=== PATIENT | male | born 1965 ===

== ENCOUNTER 2025-03-05 23:42 | Emergency (ER) | payer OTHER, SELFPAY ==
--- NOTE | ~2025-03-05 | CT_ITS ---
CLINICAL HISTORY: pneumothorax CT chest without contrast Comparison: CR - XR CHEST 1V - 03/06/25 01:54 EDT CR - XR CHEST 1V - 03/06/25 01:36 EDT Findings: The heart is normal size. The visualized thyroid and mediastinum are unremarkable. Interval resolution of leftward mediastinal shift. Tip of the endotracheal tube is 5 cm above the [place]. There is a moderately large right-sided pneumothorax, decreased in size from prior x-ray. There is a right pleural pigtail catheter with pigtail located in the posterior pleural space. Bilateral dependent ground-glass opacities consistent pulmonary edema present. Small left pleural effusion. There is a enteric tube coursing into the stomach, tip not included. Multiple air distended loops of bowel in the upper abdomen. No acute fractures. IMPRESSION: 1. Interval decrease in size of right-sided pneumothorax, now moderately large. 2. Right pigtail pleural catheter placed in the posterior pleural space. 3. Bilateral dependent ground-glass opacities in the lungs consistent with extensive pulmonary edema. Small left pleural effusion. 4. Multiple distended loops of bowel in the upper abdomen. This document has been electronically signed by: Foreign Nieto MD on 03/06/2025 03:06:52
--- NOTE | ~2025-03-05 | XR_ITS ---
CLINICAL HISTORY: et tube 1 view chest x-ray Comparison: None provided Findings: There is a massive right pneumothorax with near-total collapse of the right lung. The mediastinum is shifted leftward. Diffuse patchy opacity in the left lung. The tip of the endotracheal tube is 6.7 cm above the [place]. Normal size heart. No acute fracture. IMPRESSION: Massive right pneumothorax with leftward shift of the mediastinum. Patient team is aware, subsequent images demonstrate a right chest tube. This document has been electronically signed by: Foreign Nieto MD on 03/06/2025 02:14:57
--- NOTE | ~2025-03-05 | XR_ITS ---
CLINICAL HISTORY: chest tube 1 view chest x-ray Comparison: CR - XR CHEST 1V - 03/06/25 01:36 EDT Findings: There has been interval placement of a pigtail catheter in the right pleural space. Large right pneumothorax persists with slight interval re-expansion of the right lung. Decreased leftward shift of the mediastinum. Diffuse patchy opacity throughout the left lung. The tip of the endotracheal tube is 8.6 cm above the [place]. Heart size is normal. No acute fracture. Enteric tube courses into the stomach. Tip appears to be coiled back upon itself and directed at the GE junction. IMPRESSION: 1. Interval placement of pigtail catheter with persistent large right pneumothorax and slight interval re-expansion of the right lung. Decreased leftward shift of the mediastinum. 2. Enteric tube courses into the stomach, with tip directed back cranially at the GE junction. This document has been electronically signed by: Foreign Nieto MD on 03/06/2025 02:42:37
--- NOTE | ~2025-03-05 | CT_ITS ---
CLINICAL HISTORY: unresponsive CT head without contrast Comparison: None provided Findings: No intra-axial mass, midline shift, hydrocephalus, or acute hemorrhage. No significant atrophy-like change or white matter disease. Mucous retention cyst in the left frontal sinus. Mucosal thickening of the ethmoid air cells. The orbits are within normal limits. No skull fracture. IMPRESSION: 1. No acute intracranial findings. This document has been electronically signed by: Foreign Nieto MD on 03/06/2025 03:05:51
--- NOTE | 2025-03-05 23:56 | ECG_ITS ---
Test Reason : cardiac arrest Blood Pressure : */* mmHG Vent. Rate : 85 BPM Atrial Rate : 85 BPM P-R Int : 206 ms QRS Dur : 144 ms QT Int : 430 ms P-R-T Axes : 89 42 89 degrees QTcB Int : 511 ms Normal sinus rhythm Non-specific intra-ventricular conduction block Cannot rule out Anteroseptal infarct , age undetermined Abnormal ECG No previous ECGs available Referred By: Ba Emerson Electronically Signed By: ALFREDO HOBBS
[2025-03-06] VITALS (22 sets, daily range): BP systolic 48–134; BP diastolic 13–84; PULSE 52–84; RESP 15–22; TEMP 34–34.3; O2SAT 66–100; BMI 21.2
[2025-03-06 00:11] LABS: MANUAL DIFF FLAG NO
[2025-03-06] MEDS: Norepinephrine Bitartrate/D5W 8 MG/250 ML PLAST..BAG 125.81 MG IVCONT (00:12)
[2025-03-06 00:23] LABS: VBG Base Excess -12.2 mmol/L; VBG HCO3 18 mmol/L (22-26); VBG pCO2 71 mmHg; VBG pH 7.01 (7.32-7.43); VBG pO2 56 mmHg
[2025-03-06 00:25] LABS: INTERNATIONAL NORM RATIO 1.9 (0.9-1.1); Prothrombin Time 21.7 SEC (10.9-12.4)
[2025-03-06 00:28] LABS: Basophils Percent Auto 0.5 % (0-2); Eosinophils Percent Auto 0.2 % (0-4); Hematocrit 37.7 % (42.0-52.0); Hemoglobin 11.7 g/dl (14.0-18.0); Imm Gran Abs Auto 0.33 X10*3/uL (0.00-0.03); Lymphocytes Absolute Auto 3.3 X10*3/uL (1.2-4.9); Lymphocytes Percent Auto 49.4 % (20-40); Mean Corpuscular Hemoglobin 32.2 pg (27.0-33.0); Mean Corpuscular Volume 103.9 fL (80.0-98.0); Monocytes Absolute Auto 0.3 X10*3/uL (0.1-1.2); Monocytes Percent Auto 4.4 % (2-11); NRBC Pct Auto 0.6 /100WBC (0.0-0.2); Neutrophils Absolute Auto 2.7 x10*3/uL (2.0-8.3); Neutrophils Percent Auto 40.5 % (45-73); Platelet Count 107 X10*3/uL (160-400); Red Blood Count 3.63 X10*6/uL (4.60-5.80); Red Cell Distribution Width 13.3 % (11.0-16.0); Venous Blood Gas Refer to POC result; White Blood Count 6.6 X10*3/uL (4.8-10.8)
--- NOTE | 2025-03-06 00:30 | ED.CPR ---
HPI - CPR General Chief Complaint: Cardiac Arrest/CPR Stated Complaint: CARDIAC ARREST Time Seen by Provider: 03/05/25 23:43 Source: EMS Mode of arrival: EMS History of Present Illness ED Provider: HPI narrative: Patient's history of schizophrenia with suicidal attempts came from inpatient psych facility was sitting alone in the group room came out expressing to the staff that he is choking Heimlich maneuver was performed 2 times without success patient's started desaturating CPR started by the time EMS arrived patient was cyanosed nonresponsive initial rhythm was no shock advised EMS removed a big ball of tissues in his mouth and intubated patient was cyanosed no rigor mortis started CPR cardiac exam showed transient VFib shock was given continued CPR with transient period of ROSC no known cardiac history per chart Related Data Allergies Allergy/AdvReac Type Severity Reaction Status Date / Time No Known Allergies Allergy Verified 03/06/25 00:39 Review of Systems Review of Systems: Yes unobtainable due to endotracheal tube and Unobtainable due to mental condition [facility] Past Medical History Medical History (Updated 03/06/25 @ 03:18 by Ba Emerson MD) Depression with suicidal ideation Schizophrenia Social History Social History Advance Directives: No Advance Directives Information Provided: No Do you have a plan to hurt others: No Plan Physical Exam Vital Signs: Vital Signs: Last Vital Signs Temp 93.4 F L 03/06/25 03:27 Pulse 78 03/06/25 03:49 Resp 21 H 03/06/25 03:27 BP 132/79 03/06/25 03:49 Pulse Ox 98 03/06/25 03:27 O2 Del Method Mechanical Ventil ation 03/06/25 03:27 BMI result Body Mass Index 21.2 Appearance: Intubated Eyes: Dilated not responsive ENT: Intubated atraumatic Neck: Normal inspection. Neck supple. CVS: Normal heart rate and rhythm. Pulses normal. Respiratory: Equal air entry bilateral, Abdomen: Soft no signs of trauma Skin: Skin warm and dry. Pale Extremities: No lower extremity edema. Medications Administered Generic Name Dose Route Start Last Admin Trade Name Freq PRN Reason Stop Dose Admin Epinephrine 5 mg/ Dextrose 255 mls @ 0 mls/hr 03/06/25 01:45 03/06/25 03:49 IVCONT 1 mcg/kg/min .Q0M KIANA 205.33 mls/hr Protocol Titration Per Protocol Norepinephrine Bitartrate 8 mg in 250 mls @ 0 mls/hr 03/06/25 01:45 03/06/25 03:13 Levophed IVCONT 0.5 mcg/kg/min .Q0M KIANA 62.91 mls/hr Protocol Titration Per Protocol Albumin Human 100 mls @ 133.333 mls/hr 03/06/25 03:00 03/06/25 03:27 Kedbumin 25 % IV 03/06/25 04:44 133.33 mls/hr Q1H KIANA Administration Lactated Ringer's 1,000 mls @ 999 mls/hr 03/06/25 03:00 03/06/25 02:57 Lr IV 03/06/25 04:00 999 mls/hr .Q1H1M KIANA Administration Discontinued Medications Generic Name Dose Route Start Last Admin Trade Name Freq PRN Reason Stop Dose Admin Piperacillin Sod/Tazobactam 50 mls @ 100 mls/hr 03/06/25 02:06 03/06/25 03:07 Sod 3.375 gm/ Sodium Chloride IV 03/06/25 02:35 Infused ONCE ONE Infusion Calcium Gluconate 1 gm in 50 mls @ 50 mls/hr 03/06/25 02:52 03/06/25 03:01 Calcium Gluconate IV 03/06/25 03:51 50 mls/hr ONCE ONE Administration Potassium Chloride 10 meq in 100 mls @ 100 mls/hr 03/06/25 02:52 03/06/25 03:05 Potassium Chloride/H20 IV 03/06/25 03:51 100 mls/hr ONCE ONE Administration Medical Decision Making Medical Decision Making MDM Narrative: Patient's schizophrenia history of suicidal attempts brought by EMS for unresponsiveness was found in the dining room for unknown time while intubating EMS noticed big ball of tissue in his mouth which was removed and intubated patient received multiple doses of epi at scene and was given shock for transient VFib patient was with EMS for 36 minutes after arrival also patient continued to be on CPR multiple doses of epi were given intermittent patient had pulses palpable Skin was given 2 L of IV fluids and Levophed was started also patient was given vasopressin 20 mg IV at this time patient is off CPR maintaining his blood pressure 132/70, no icu bed in our hospital will call [facility] Patient's only contact is his sister Cheryl Delgado phone number [phone] 2am chest x-ray showed right pneumothorax with L mediastinal shift pigtail catheter 14 [place] was placed blood pressure and saturation improved Patient has been accepted at [facility] in MICU Dr. Arizmendi 3 am patient's blood pressure continued to drop continued on epinephrine 1 mcg/kg/min and norepinephrine 0.5 mcg/kg/min drip patient has already received vasopressin will give albumin, Zosyn and ringer lactate Current blood pressure 102/61, MAP 67 Patient will be transferred to [facility] by [facility] 350 am [facility] here to take the patient patient's blood pressure 114/69 map of 84 on epi 1 mcg and not epinephrine and 0.5 mcg Lab Data MDM Lab Attestation statement: I reviewed the patient's lab results. 03/06/25 00:03 03/06/25 00:03 Labs: Lab Results 03/06/25 03/06/25 03/06/25 Range/Units 00:03 00:15 00:31 WBC 6.6 (4.8-10.8) X10*3/uL RBC 3.63 L (4.60-5.80) X10*6/uL Hgb 11.7 L (14.0-18.0) g/dl Hct 37.7 L (42.0-52.0) % MCV 103.9 H (80.0-98.0) fL MCH 32.2 (27.0-33.0) pg MCHC 31.0 (31.0-36.0) g/dl RDW 13.3 (11.0-16.0) % Plt Count 107 L (160-400) X10*3/uL MPV 10.0 (9.4-12.4) fL Immature Gran % (Auto) 5.0 H (0.0-0.4) % Neut % (Auto) 40.5 L (45-73) % Lymph % (Auto) 49.4 H (20-40) % [place] % (Auto) 4.4 (2-11) % Eos % (Auto) 0.2 (0-4) % Baso % (Auto) 0.5 (0-2) % Lymph # (Auto) 3.3 (1.2-4.9) X10*3/uL [place] # (Auto) 0.3 (0.1-1.2) X10*3/uL Eos # (Auto) 0.0 (0.0-0.4) X10*3/uL Baso # (Auto) 0.0 (0.0-0.2) X10*3/uL Abs Immat Gran (auto) 0.33 H (0.00-0.03) X10*3/uL Absolute Neuts (auto) 2.7 (2.0-8.3) x10*3/uL Absolute Nucleated RBC 0.040 H (0.0-0.012) X10*3/uL Nucleated RBC % (auto) 0.6 H (0.0-0.2) /100WBC Hold Purple Top SEE NOTE PT 21.7 H (10.9-12.4) SEC INR 1.9 H (0.9-1.1) VBG pH 7.01 L* (7.32-7.43) VBG pCO2 71 mmHg VBG pO2 56 mmHg VBG HCO3 18 L (22-26) mmol/L VBG O2 Saturation 66.0 % VBG Base Excess -12.2 mmol/L Sodium 147 H (135-145) mmol/L Potassium 3.3 (3.3-5.1) mmol/L Chloride 120 H (96-108) mmol/L Carbon Dioxide 18 L (22-29) mmol/L Anion Gap 12 (12-20) BUN 15 (9-16) mg/dL Creatinine 1.15 (0.5-1.4) mg/dL Estim Creat Clear Calc 64.8 Estimated GFR > 60 Random Glucose 120 H (60-115) mg/dL Lactic Acid 7.3 H* (0.5-2.0) mmol/L Calcium 5.9 L* (8.4-10.2) mg/dL Magnesium 6.0 H* (1.6-2.6) mg/dL Total Bilirubin 0.5 (0.0-1.0) mg/dL AST 75 H (5-37) U/L ALT 91 H (0-40) U/L Alkaline Phosphatase 37 L (39-117) U/L Troponin I High Sens 8.3 (<3.5-35.0) ng/L B-Natriuretic Peptide 27 (<100) pg/mL Total Protein 2.5 L (6.5-8.0) g/dL Albumin 1.8 L (3.5-5.0) g/dL Urine Color Urine Appearance Urine pH (5.0-9.0) Ur Specific [place] (1.005-1.025) Urine Protein (Neg-Trace) mg/dL Urine Glucose (UA) (Negative) mg/dL Urine Ketones (Negative) mg/dL Urine Blood (Negative) Urine Nitrite (Negative) Ur Leukocyte Esterase (Negative) Urine RBC (0-2) /HPF Urine WBC (0-5) /HPF Ur Squamous Epith Cells (0-2) /HPF Urine Bacteria (None Seen) Hyaline Casts (0-2) /LPF Urine Opiates Screen (Not Detect) Ur Buprenorphine Scrn (Not Detect) ng/mL Ur Oxycodone Screen (Not Detect) ng/mL Urine Methadone Screen (Not Detect) ng/mL Urine Fentanyl Screen (Not Detect) Ur Barbiturates Screen (Not Detect) Ur Phencyclidine Scrn (Not Detect) Ur Amphetamines Screen (Not Detect) U Benzodiazepines Scrn (Not Detect) [place] 0.79 (0.60-1.20) mmol/L Urine Cocaine Screen (Not Detect) U Marijuana (THC) Screen (Not Detect) 03/06/25 03/06/25 Range/Units 00:52 03:13 WBC (4.8-10.8) X10*3/uL RBC (4.60-5.80) X10*6/uL Hgb (14.0-18.0) g/dl Hct (42.0-52.0) % MCV (80.0-98.0) fL MCH (27.0-33.0) pg MCHC (31.0-36.0) g/dl RDW (11.0-16.0) % Plt Count (160-400) X10*3/uL MPV (9.4-12.4) fL Immature Gran % (Auto) (0.0-0.4) % Neut % (Auto) (45-73) % Lymph % (Auto) (20-40) % [place] % (Auto) (2-11) % Eos % (Auto) (0-4) % Baso % (Auto) (0-2) % Lymph # (Auto) (1.2-4.9) X10*3/uL [place] # (Auto) (0.1-1.2) X10*3/uL Eos # (Auto) (0.0-0.4) X10*3/uL Baso # (Auto) (0.0-0.2) X10*3/uL Abs Immat Gran (auto) (0.00-0.03) X10*3/uL Absolute Neuts (auto) (2.0-8.3) x10*3/uL Absolute Nucleated RBC (0.0-0.012) X10*3/uL Nucleated RBC % (auto) (0.0-0.2) /100WBC Hold Purple Top PT (10.9-12.4) SEC INR (0.9-1.1) VBG pH 7.09 L* (7.32-7.43) VBG pCO2 57 mmHg VBG pO2 71 mmHg VBG HCO3 17 L (22-26) mmol/L VBG O2 Saturation 89.0 % VBG Base Excess -12.0 mmol/L Sodium (135-145) mmol/L Potassium (3.3-5.1) mmol/L Chloride (96-108) mmol/L Carbon Dioxide (22-29) mmol/L Anion Gap (12-20) BUN (9-16) mg/dL Creatinine (0.5-1.4) mg/dL Estim Creat Clear Calc Estimated GFR Random Glucose (60-115) mg/dL Lactic Acid (0.5-2.0) mmol/L Calcium (8.4-10.2) mg/dL Magnesium (1.6-2.6) mg/dL Total Bilirubin (0.0-1.0) mg/dL AST (5-37) U/L ALT (0-40) U/L Alkaline Phosphatase (39-117) U/L Troponin I High Sens (<3.5-35.0) ng/L B-Natriuretic Peptide (<100) pg/mL Total Protein (6.5-8.0) g/dL Albumin (3.5-5.0) g/dL Urine Color Yellow Urine Appearance Cloudy Urine pH 7.5 (5.0-9.0) Ur Specific [place] 1.010 (1.005-1.025) Urine Protein 30 (1+) H (Neg-Trace) mg/dL Urine Glucose (UA) Negative (Negative) mg/dL Urine Ketones Trace (Negative) mg/dL Urine Blood Large (3+) H (Negative) Urine Nitrite Negative (Negative) Ur Leukocyte Esterase Trace H (Negative) Urine RBC 0-2 (0-2) /HPF Urine WBC 0-5 (0-5) /HPF Ur Squamous Epith Cells 0-2 (0-2) /HPF Urine Bacteria 4+ (None Seen) Hyaline Casts 11-20 (0-2) /LPF Urine Opiates Screen Not Detected (Not Detect) Ur Buprenorphine Scrn Not Detected (Not Detect) ng/mL Ur Oxycodone Screen Not Detected (Not Detect) ng/mL Urine Methadone Screen Not Detected (Not Detect) ng/mL Urine Fentanyl Screen Not Detected (Not Detect) Ur Barbiturates Screen Not Detected (Not Detect) Ur Phencyclidine Scrn Not Detected (Not Detect) Ur Amphetamines Screen Not Detected (Not Detect) U Benzodiazepines Scrn Not Detected (Not Detect) [place] (0.60-1.20) mmol/L Urine Cocaine Screen Not Detected (Not Detect) U Marijuana (THC) Screen Not Detected (Not Detect) Independent Interpretation I performed an independent interpretation of an: EKG Interpretation: Normal sinus rhythm heart rate 85 beats per minute IVCD poor progression of R-wave in anterior leads no acute ST elevation, T inversion in lateral leads Radiology Impression Discussion of test interpretation with radiology: I have reviewed the radiologist's reading. Radiologist Impression: [place] [id number] CT Scan Report Signed Patient: Marc Hartman MR#: [id number] : 1965 Acct:[id number] Age/Sex: 59 / M ADM Date: 03/06/25 Loc: .ED Attending Dr: Ordering Physician: Ba Emerson MD Date of Service: 03/06/25 Procedure(s): CT chest wo IV con Accession Number(s): [id number] cc: Ba Emerson MD~ Report Number: [id number]: Total DLP = 470.46 mGy-cm CLINICAL HISTORY: pneumothorax CT chest without contrast Comparison: CR - XR CHEST 1V - 03/06/25 01:54 EDT CR - XR CHEST 1V - 03/06/25 01:36 EDT Findings: The heart is normal size. The visualized thyroid and mediastinum are unremarkable. Interval resolution of leftward mediastinal shift. Tip of the endotracheal tube is 5 cm above the [place]. There is a moderately large right-sided pneumothorax, decreased in size from prior x-ray. There is a right pleural pigtail catheter with pigtail located in the posterior pleural space. Bilateral dependent ground-glass opacities consistent pulmonary edema present. Small left pleural effusion. There is a enteric tube coursing into the stomach, tip not included. Multiple air distended loops of bowel in the upper abdomen. No acute fractures. IMPRESSION: 1. Interval decrease in size of right-sided pneumothorax, now moderately large. 2. Right pigtail pleural catheter placed in the posterior pleural space. 3. Bilateral dependent ground-glass opacities in the lungs consistent with extensive pulmonary edema. Small left pleural effusion. 4. Multiple distended loops of bowel in the upper abdomen. This document has been electronically signed by: Foreign Nieto MD on 03/06/2025 03:[address] [place] [id number] [address] Scan Report Signed Patient: Marc Hartman MR#: [id number] : 1965 Acct:[id number] Age/Sex: 59 / M ADM Date: 03/06/25 Loc: HO.ED Attending Dr: Ordering Physician: Ba Emerson MD Date of Service: 03/06/25 Procedure(s): CT head/brain wo IV con Accession Number(s): [id number] cc: Ba Emerson MD~ Report Number: [id number]: Total DLP = 730.22 mGy-cm CLINICAL HISTORY: unresponsive CT head without contrast Comparison: None provided Findings: No intra-axial mass, midline shift, hydrocephalus, or acute hemorrhage. No significant atrophy-like change or white matter disease. Mucous retention cyst in the left frontal sinus. Mucosal thickening of the ethmoid air cells. The orbits are within normal limits. No skull fracture. IMPRESSION: 1. No acute intracranial findings. This document has been electronically signed by: Foreign Nieto MD on 03/06/2025 03:05:51 Procedures Chest Tube Chest Tube 1: Chest Tube Location: right Size of Tube (cm): 14 Chest Tube Prep: Yes betadine prep and sterile drapes applied Incision Made With: #10 blade Post Procedure: sutured to skin and sterile dressing applied Tube Drainage: none Post Procedure CXR?: Yes Discharge Plan Discharge Clinical Impression: Acute respiratory failure, Cardiac arrest, Pneumothorax on right Patient Disposition: [facility] Hospital Transfer Details: [facility] MICU Daily [address] Arizmendi Print Language: Togolese
[2025-03-06 00:44] LABS: Alanine Aminotransferase 91 U/L (0-40); Albumin Level 1.8 g/dL (3.5-5.0); Alkaline Phosphatase 37 U/L (39-117); Anion Gap 12 (12-20); Aspartate Amino Transferase 75 U/L (5-37); Bilirubin Total 0.5 mg/dL (0.0-1.0); Blood Urea Nitrogen 15 mg/dL (9-16); Calcium 5.9 mg/dL (8.4-10.2); Carbon Dioxide 18 mmol/L (22-29); Chloride 120 mmol/L (96-108); Creatinine Clr Calc Pharmacy 64.8; Estimated Glomerular Filt Rate > 60; Glucose Random 120 mg/dL (60-115); Potassium 3.3 mmol/L (3.3-5.1); Sodium 147 mmol/L (135-145); Total Protein 2.5 g/dL (6.5-8.0)
[2025-03-06 00:45] LABS: Lactic Acid 7.3 mmol/L (0.5-2.0)
[2025-03-06 00:46] LABS: Troponin-I High Sensitivity 8.3 ng/L (<3.5-35.0)
--- NOTE | 2025-03-06 00:52 | PC.NURSE ---
15f temp sensing todd placed at this time, 200ml of yellow urine voided
[2025-03-06 00:59] LABS: Appearance Urine Cloudy; Color Urine Yellow; Glucose Urine UA Negative (Negative); Leukocyte Esterase Urine Trace (Negative); Nitrite Urine Negative (Negative); PH 7.5 (5.0-9.0); UMIC TRIGGER UACC YES; Urine Blood Large (3+) (Negative); Urine Ketones Trace mg/dL (Negative); Urine Protein 30 (1+) mg/dL (Neg-Trace)
[2025-03-06 01:03] LABS: Lithium 0.79 mmol/L (0.60-1.20)
[2025-03-06 01:09] LABS: Amphetamine Screen Urine Not Detected (Not Detect); Barbiturates, Urine Not Detected (Not Detect); Benzodiazepines Screen Urine Not Detected (Not Detect); Buprenorphine Scr Not Detected (Not Detect); Cannabinoid Screen Urine Not Detected (Not Detect); Cocaine Screen Urine Not Detected (Not Detect); Fentanyl, urine Not Detected (Not Detect); Methadone Screen, Urine Not Detected (Not Detect); Opiate Screen Urine Not Detected (Not Detect); Oxycodone Screen Urine Not Detected (Not Detect); Phencyclidine Screen Urine Not Detected (Not Detect)
--- NOTE | 2025-03-06 01:31 | PC.NURSE ---
kiara victoria placed at this time due to low temp. at bedside attempting og tube, unsuccessful x3
[2025-03-06] MEDS: EPINEPHrine 5 MG in Dextrose 5 % 250 ML 4.11 MG IVCONT (01:44)
--- NOTE | 2025-03-06 01:55 | PC.NURSE ---
[address]F pigtail on [address] chest tube placed by at this time.
--- NOTE | 2025-03-06 01:58 | PC.NURSE ---
og tube placed at this time by provider, xray at bedside
[2025-03-06 02:01] LABS: Bacteria Urine 4+ (None Seen); RBC Urine 0-2 /HPF (0-2); Squamous Epithelial Cell Urine 0-2 /HPF (0-2); WBC Urine 0-5 /HPF (0-5)
[2025-03-06 02:02] LABS: B Type Natriuretic Peptide 27 pg/mL (<100)
[2025-03-06] MEDS: Norepinephrine Bitartrate/D5W 8 MG/250 ML PLAST..BAG 62.91 MG IVCONT (02:02)
[2025-03-06 02:09] LABS: Reflex Lactate? Lactic Acid Added
--- NOTE | 2025-03-06 02:25 | PC.NURSE ---
per no cultures needed prior to antibiotics admin
[2025-03-06] MEDS: Piperacillin Sodium/Tazobactam 3.375 GM in 0.9 % Sodium Chloride 50 ML IV (02:31)
[2025-03-06] MEDS: Lactated Ringers 1,000 ML 999 ML IV (02:57)
[2025-03-06] MEDS: Calcium Gluconate/NaCl,Iso-Osm 1 GM/50 ML PLAST..BAG IV (03:01)
[2025-03-06] MEDS: Potassium Chloride/H20 10 MEQ/100 ML PIGGYBACK 100 MEQ IV (03:05)
[2025-03-06] MEDS: EPINEPHrine 5 MG in Dextrose 5 % 250 ML 205.33 MG IVCONT (03:13)
[2025-03-06] MEDS: Albumin Human 25 % 100 ML 133.33 ML IV (03:27)
[2025-03-06 03:33] LABS: Venous Blood Gas Refer to POC result
[2025-03-06 03:34] LABS: VBG HCO3 17 mmol/L (22-26); VBG pCO2 57 mmHg; VBG pH 7.09 (7.32-7.43); VBG pO2 71 mmHg
--- NOTE | 2025-03-06 03:41 | PC.NURSE ---
report given to Seymour YOUNG at [address]
--- NOTE | 2025-03-06 04:03 | PC.NURSE ---
[facility] at bedside for report and transport
[2025-03-06 04:07] LABS: Lactic Acid 7.8 mmol/L (0.5-2.0)
--- NOTE | 2025-03-06 04:08 | PC.NURSE ---
pt dc with [facility] , 77.005 of levophed left with pt.
[2025-03-06 05:45] LABS: Reflex Lactate? Lactic Acid Added
[2025-03-08 14:12] LABS: Glucose, Whole Blood 106 mg/dL (60-115)
== END 2025-03-06 04:34 | disposition short-term general hospital (02) ==
PROVIDERS: Emergency Provider Internal Medicine
DX: J96.00 Acute respiratory failure, unspecified whether with hypoxia or hypercapnia (principal); I46.9 Cardiac arrest, cause unspecified; J93.9 Pneumothorax, unspecified; R68.0 Hypothermia, not associated with low environmental temperature; R73.9 Hyperglycemia, unspecified; F32.A Depression, unspecified; F20.9 Schizophrenia, unspecified; Z91.51 Personal history of suicidal behavior
CPT/HCPCS: 32556; 36415; 70450; 71045; 71250; 80053; 80178; 80307; 81001; 82803; 82947; 83605; 83735; 83880; 84484; 85025; 85610; 93005; 96365; 96366; 96375; 99285; 99291; 99292; J0171; J0282; J0613; J2543; J3480; J7120; P9047

== ENCOUNTER → 2025-03-05 23:56 | Outpatient (BNV) | payer OTHER, SELFPAY | PROVIDERS: Emergency Provider Internal Medicine; Visit Provider Internal Medicine | DX: I45.4 Nonspecific intraventricular block (principal) | CPT/HCPCS: 93010 ==

== ENCOUNTER → 2025-03-06 00:36 | Outpatient (BNV) | payer OTHER, SELFPAY | PROVIDERS: Emergency Provider Internal Medicine; Visit Provider Radiology Diagnostic Radiology | DX: J93.9 Pneumothorax, unspecified (principal); R91.8 Other nonspecific abnormal finding of lung field; R40.20 Unspecified coma | CPT/HCPCS: 70450; 71045; 71250 ==